=== PATIENT | male | born 1965 | race African-American/Black ===

== ENCOUNTER 2018-12-02 17:44 | Inpatient (IN) | payer OTHER ==
--- NOTE | 2018-12-02 18:35 | HP ---
COWS - Scale Resting Pulse: 0= [place] 80 or Below Sweatin= Chills/Flushing Restless Observation: 1= Difficult to Sit Still Pupil Size: 0= Normal to Room Light Bone or Joint Aches: 1= Mild Discomfort Runny Nose/ Eye Tearin= Runny Nose/Eyes GI Upset > 30mins: 2= Nausea/Diarrhea Tremor Observation: 2= Slight Tremor Visible Yawning Observation: 1= 1-2x During Session Anxiety or Irritability: 1=Feels Anxious/Irritable Goose Flesh Skin: 0=Smooth Skin COWS Score: 11 CIWA Score - Admission Criteria OASAS Guidelines: Admission for Medically Managed Detox: Requires at least one of the followin. CIWA greater than 12 2. Seizures within the past 24 hours 3. Delirium tremens within the past 24 hours 4. Hallucinations within the past 24 hours 5. Acute intervention needed for co occurring medical disorder 6. Acute intervention needed for co occurring psychiatric disorder 7. Severe withdrawal that cannot be handled at a lower level of care (continued vomiting, continued diarrhea, abnormal vital signs) requiring intravenous medication and/or fluids 8. Admission ROS [facility] Chief Complaint: 53 y/o M with PMH HTN who presents for detox from heroin. Also with marijuana use, cocaine use. Allergies/Adverse Reactions: Allergies Allergy/AdvReac Type Severity Reaction Status Date / Time No Known Allergies Allergy Verified 12/02/18 18:08 History of Present Illness: 53 y/o M with PMH HTN who presents for detox from heroin. Also with marijuana use, cocaine use. Per pt, he last used heroin today. States that he used 4.5-5 bags via inhalation today. Never IVDA. Uses daily, 6-7 bags. Longest sobriety 1 month in 2001; states that at the time his mother was sick. Being homeless caused him to relapse, as well as the stress of his father passing away. 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 Has never been in a methadone program and has never used suboxone. Also uses marijuana, 3 blunts/day. Has used this since he was 10 yrs old. Helps him "mellow out." Also used cocaine yesterday, via inhalation $40 worth. Never IVDA. Uses a few times per month. States that the cocaine makes him feel numb. Has OD on fentanyl x2. Denies alcohol use. PMH: as above PsxH: denies meds: denies allergies: NKDA FH: denies SH: [address]. used to live in a house in [place]. is in touch with his sister. used to smoke 1-2 cigs/day however states he no longer does. marijuana, cocaine, heroin use as above. denies other use. Exam Limitations: No Limitations - Ebola screening Have you traveled outside of the country in the last 21 days: No (N) Have you had contact with anyone from an Ebola affected area: No Have you been sick,other than usual withdrawal symptoms: No Do you have a fever: No - Review of Systems Constitutional: Unintentional Wgt. Loss EENT: reports: No Symptoms Reported Respiratory: reports: No Symptoms reported Cardiac: reports: No Symptoms Reported GI: reports: Diarrhea, Nausea : reports: No Symptoms Reported Musculoskeletal: reports: Joint Pain Integumentary: reports: No Symptoms Reported Neuro: reports: No Symptoms reported Endocrine: reports: No Symptoms Reported Hematology: reports: No Symptoms Reported Psychiatric: reports: No Sypmtoms Reported, Orientated x3 Patient History - Patient Medical History Hx Anemia: No Hx Asthma: No Hx Chronic Obstructive Pulmonary Disease (COPD): No Hx Cancer: No Hx Cardiac Disorders: No Hx Congestive Heart Failure: No Hx Hypertension: Yes Hx Hypercholesterolemia: No Hx Pacemaker: No HX Cerebrovascular Accident: No Hx Seizures: No Hx Dementia: No Hx Diabetes: No Hx Gastrointestinal Disorders: No Hx Liver Disease: No Hx Genitourinary Disorders: No Hx Sexually Transmitted Disorders: No Hx Renal Disease (ESRD): No Hx Thyroid Disease: No Hx Human Immunodeficiency Virus (HIV): No Hx Hepatitis C: No Hx Depression: No Hx Suicide Attempt: No Hx Bipolar Disorder: No Hx Schizophrenia: No - Patient Surgical History Past Surgical History: No Hx Neurologic Surgery: No Hx Cataract Extraction: No Hx Cardiac Surgery: No Hx Lung Surgery: No Hx Breast Surgery: No Hx Breast Biopsy: No Hx Abdominal Surgery: No Hx Appendectomy: No Hx Cholecystectomy: No Hx Genitourinary Surgery: No Hx Section: No Hx Orthopedic Surgery: No Hx Hysterectomy: No Anesthesia Reaction: No - PPD History Documented Results: Negative w/o proof PPD to be Administered?: Yes - Reproductive History Patient is a Female of Child Bearing Age (11 -55 yrs old): No - Smoking Cessation Smoking history: Former smoker Have you smoked in the past 12 months: Yes Aproximately how many cigarettes per day: 2 Hx Chewing Tobacco Use: No Initiated information on smoking cessation: Yes 'Breaking Loose' booklet given: 12/02/18 - Substance & Tx. History Hx Alcohol Use: No Substance Use Type: Cocaine, Heroin, Marijuana - Substances abused Heroin Other (specify): SNIFF Frequency: Daily Amount used: 7 bags Age of first use: 10 Date of last use: 12/02/18 Marijuana/Hashish Substance route: Smoking Frequency: Daily Amount used: 7 BAGS Age of first use: 10 Date of last use: 12/02/18 Cocaine Substance route: Inhalation Frequency: 1-2 times per week Amount used: $40 Family Disease History - Family Disease History Family History: Denies Admission Physical Exam [facility] - Vital Signs Vital Signs: Vital Signs - 24 hr 12/02/18 12/02/18 18:03 18:13 Temperature 98.7 F 98.7 F Pulse Rate 60 60 Respiratory 18 18 Rate Blood Pressure 160/100 160/100 - Physical General Appearance: Yes: Disheveled HEENTM: Yes: Within Normal Limits Respiratory: Yes: Lungs Clear Neck: Yes: Supple Breast: Yes: Breast Exam Deferred Cardiology: Yes: Regular Rhythm, Regular Rate, S1, S2 Abdominal: Yes: Tenderness (+diffusely ttp in epigastrium.) Genitourinary: Yes: Within Normal Limits Back: Yes: Normal Inspection Musculoskeletal: Yes: Within Normal Limits Extremities: Yes: Within Normal Limits Neurological: Yes: group captain II-XII NML intact Integumentary: Yes: Dry, Warm - Diagnostic (1) Opioid withdrawal Current Visit: Yes Status: Acute (2) Opioid use disorder Current Visit: Yes Status: Chronic (3) Cocaine use disorder Current Visit: Yes Status: Chronic (4) Marijuana dependence Current Visit: Yes Status: Chronic (5) Homelessness Current Visit: Yes Status: Chronic (6) Dehydration Current Visit: Yes Status: Chronic Cleared for Admission [facility] - Detox or Rehab [facility] Level of Care: Medically Managed Detox Regimen/Protocol: Methadone Breathalyzer - Breathalyzer Breathalyzer: 0 Urine Drug Screen - Test Device Lot number: [id number] Expiration date: 09/03/20 - Control Is test valid?: Yes - Results Drug screen NEGATIVE: No Urine drug screen results: THC-Marijuana, RUBINA-Cocaine, FEN-Fentanyl, MOP-Opiates , OXY-Oxycodone Inpatient Rehab Admission - Rehab Decision to Admit Inpatient rehab admission?: No
[2018-12-02] MEDS ORDERED: METHADONE HCL 10 MG TABLET (FOR DETOX USE ONLY) PO ONE (19:10)
[2018-12-02] MEDS ORDERED: cloNIDine HCL 0.1 MG TABLET PO PRN (19:10)
[2018-12-02] MEDS ORDERED: ACETAMINOPHEN 325 MG TABLET (FP) PO PRN ×2 (19:12)
[2018-12-02] MEDS ORDERED: hydrOXYzine PAMOATE 25 MG CAPSULE (FP) PO PRN (19:12)
[2018-12-02] MEDS ORDERED: MELATONIN 5 MG TABLETS PO PRN (19:12)
[2018-12-02] MEDS ORDERED: MAGNESIUM HYDROX 2400MG/30ML ORAL SUSPENSION 30 ML CUP PO PRN (19:12)
[2018-12-02] MEDS ORDERED: MENTHOL/PHENOL 1 EACH UD MM PRN (19:12)
[2018-12-02] MEDS ORDERED: BISMUTH SUBSALICYLATE 524 MG/30 ML UD PO PRN (19:12)
[2018-12-02] MEDS ORDERED: MAG HYDROX/AL HYDROX/SIMETH 30 ML UNIT-DOSE CUP PO PRN (19:12)
[2018-12-02] MEDS ORDERED: IBUPROFEN 400 MG TABLET (FP) PO PRN (19:12)
--- NOTE | 2018-12-02 19:18 | PN ---
Teaching Attending Note Name of Resident: Gloria Cardona ATTENDING PHYSICIAN STATEMENT I saw and evaluated the patient. I reviewed the resident's note and discussed the case with the resident. I agree with the resident's findings and plan as documented. SUBJECTIVE: 53 yo with a long h/o of heroin use. Pt states he is tired of using. First time in detox, says he will be soon getting a job and so would like to stop using. OBJECTIVE: Vital Signs - 24 hr 12/02/18 12/02/18 12/02/18 18:03 18:13 18:44 Temperature 98.7 F 98.7 F 98.7 F Pulse Rate 60 60 60 Respiratory 18 18 18 Rate Blood Pressure 160/100 160/100 160/100 alert and oriented neuro-non focal exam ASSESSMENT AND PLAN: OUD- Methadone based detox, pt agrees to go to methadone MAT at discharge HTN- start norvasc, clonidine prn
[2018-12-02] MEDS: THIAMINE HCL 100 MG TABLET (FP) PO SCH (21:19)
[2018-12-02] MEDS: amLODIPine BESYLATE 5 MG TABLET (FP) PO SCH (21:19)
[2018-12-03] MEDS ORDERED: METHADONE HCL 5 MG TABLET (FOR DETOX USE ONLY) ONE (08:27)
[2018-12-03] MEDS ORDERED: METHADONE HCL 10 MG TABLET (FOR DETOX USE ONLY) ONE (08:27)
[2018-12-03] MEDS: PRENATAL VITAMINS W/ FOLIC ACID TABLET (FP) PO SCH (09:50)
[2018-12-03] MEDS: amLODIPine BESYLATE 5 MG TABLET (FP) PO SCH (09:50)
[2018-12-03] MEDS ORDERED: LOPERAMIDE HCL 2 MG CAPSULE PO PRN (09:54)
[2018-12-03] MEDS ORDERED: METHADONE (DETOX) 20 MG, METHADONE (DETOX) 5 MG PO ONE (10:00)
[2018-12-03 10:38] LABS: ALBUMIN 3.2 g/dl (3.4-5.0); BILIRUBIN,TOTAL 0.6 mg/dL (0.2-1); BLOOD UREA NITROGEN 8.4 mg/dL (7-18); CALCIUM 7.9 mg/dL (8.5-10.1); CREATININE 0.8 mg/dL (0.55-1.3); POTASSIUM 3.7 mmol/L (3.5-5.1); TOT PROT 6.4 g/dl (6.4-8.2)
[2018-12-03 10:57] LABS: HEMATOCRIT 38.1 % (35.4-49); HEMOGLOBIN 12.6 GM/dL (11.7-16.9); MCH 28.9 pg (25.7-33.7); MCHC 33.1 g/dl (32.0-35.9); MEAN CELL VOLUME 87.4 fl (80-96); PLATELET COUNT 155 K/MM3 (134-434); RBC 4.36 M/mm3 (4.00-5.60); RDW 14.3 % (11.9-15.9); WHITE BLOOD COUNT 7.2 K/mm3 (4.0-10.0)
--- NOTE | 2018-12-03 14:50 | PN ---
BHS COWS - Scale Resting Pulse: 0= [place] 80 or Below Sweatin= Chills/Flushing Restless Observation: 1= Difficult to Sit Still Pupil Size: 0= Normal to Room Light Bone or Joint Aches: 2= Severe Diffuse Aches Runny Nose/ Eye Tearin= None GI Upset > 30mins: 0= None Tremor Observation of Outstretched Hands: 0= None Yawning Observation: 1= 1-2x During Session Anxiety or Irritability: 2=Irritable/Anxious Goose Flesh Skin: 3=Piloerection COWS Score: 10 BHS Progress Note (SOAP) Subjective: Body Aches, Anxious. Objective: PATIENT A & O X 3. IN NO ACUTE DISTRESS. 12/03/18 14:46 Vital Signs Temperature 98.2 F 12/03/18 13:31 Pulse Rate 56 L 12/03/18 13:31 Respiratory Rate 18 12/03/18 13:31 Blood Pressure 151/83 12/03/18 13:31 O2 Sat by Pulse Oximetry (%) Laboratory Tests 12/03/18 12/03/18 07:00 07:00 WBC 7.2 RBC 4.36 Hgb 12.6 Hct 38.1 MCV 87.4 MCH 28.9 MCHC 33.1 RDW 14.3 Plt Count 155 MPV 10.0 Sodium 140 Potassium 3.7 Chloride 105 Carbon Dioxide 28 Anion Gap 6 L BUN 8.4 Creatinine 0.8 Est GFR (CKD-EPI)AfAm 116.56 Est GFR (CKD-EPI)NonAf 100.57 Random Glucose 76 Calcium 7.9 L Total Bilirubin 0.6 AST 18 ALT 19 Alkaline Phosphatase 112 Total Protein 6.4 Albumin 3.2 L LABS NOTED. RESULTS OF ADMISSION QFT /TB TESTAND RPR PENDING. 12/03/18 14:49 Assessment: 12/03/18 14:48 WITHDRAWAL SYMPTOMS. HYPOCALKCEMIA. 12/03/18 14:48 Plan: CONTINUE DETOX. OS-JANNETH, 500 MG PO BID FOR LOW CA LEVEL NOTED ON DETOX ADMISSION LABORATORY ASSESSMENT.
[2018-12-03] MEDS: CALCIUM 500MG/VIT-D 200 UNITS COMBO TABLET (FP) PO SCH ×2 (15:03→22:10)
[2018-12-03] MEDS: THIAMINE HCL 100 MG TABLET (FP) PO SCH (22:10)
[2018-12-04] MEDS ORDERED: METHADONE HCL 10 MG TABLET (FOR DETOX USE ONLY) PO ONE (10:00)
[2018-12-04] MEDS: amLODIPine BESYLATE 5 MG TABLET (FP) PO SCH (10:02)
[2018-12-04] MEDS: PRENATAL VITAMINS W/ FOLIC ACID TABLET (FP) PO SCH (10:02)
[2018-12-04] MEDS: CALCIUM 500MG/VIT-D 200 UNITS COMBO TABLET (FP) PO SCH ×2 (10:04→23:00)
[2018-12-04] MEDS: METHOCARBAMOL 500 MG TABLET PO PRN ×2 (12:02→22:07)
--- NOTE | 2018-12-04 13:00 | PN ---
BHS COWS - Scale Resting Pulse: 0= [place] 80 or Below Sweatin= Chills/Flushing Restless Observation: 0= Sits Still Pupil Size: 1= Pupils >than Normal Bone or Joint Aches: 1= Mild Discomfort Runny Nose/ Eye Tearin= Nasal Congestion GI Upset > 30mins: 1= Stomach Cramp Tremor Observation of Outstretched Hands: 1= Tremor [place], Not Seen Yawning Observation: 1= 1-2x During Session Anxiety or Irritability: 1=Feels Anxious/Irritable Goose Flesh Skin: 0=Smooth Skin COWS Score: 8 BHS Progress Note (SOAP) Subjective: 53 years old male admitted on 12/02/18 for acute opiate withdrawal sx management body aches joins pain able to perform ADL's independently tolerate food and fluid well Objective: 12/04/18 13:01 Vital Signs Temperature 98.2 F 12/04/18 09:31 Pulse Rate 58 L 12/04/18 09:31 Respiratory Rate 18 12/04/18 09:31 Blood Pressure 139/76 12/04/18 09:31 O2 Sat by Pulse Oximetry (%) Laboratory Last Values WBC 7.2 K/mm3 (4.0-10.0) 12/03/18 07:00 RBC 4.36 M/mm3 (4.00-5.60) 12/03/18 07:00 Hgb 12.6 GM/dL (11.7-16.9) 12/03/18 07:00 Hct 38.1 % (35.4-49) 12/03/18 07:00 MCV 87.4 fl (80-96) 12/03/18 07:00 MCH 28.9 pg (25.7-33.7) 12/03/18 07:00 MCHC 33.1 g/dl (32.0-35.9) 12/03/18 07:00 RDW 14.3 % (11.9-15.9) 12/03/18 07:00 Plt Count 155 K/MM3 (134-434) 12/03/18 07:00 MPV 10.0 fl (7.5-11.1) 12/03/18 07:00 Sodium 140 mmol/L (136-145) 12/03/18 07:00 Potassium 3.7 mmol/L (3.5-5.1) 12/03/18 07:00 Chloride 105 mmol/L (98-107) 12/03/18 07:00 Carbon Dioxide 28 mmol/L (21-32) 12/03/18 07:00 Anion Gap 6 MMOL/L (8-16) L 12/03/18 07:00 BUN 8.4 mg/dL (7-18) 12/03/18 07:00 Creatinine 0.8 mg/dL (0.55-1.3) 12/03/18 07:00 Est GFR (CKD-EPI)AfAm 116.56 12/03/18 07:00 Est GFR (CKD-EPI)NonAf 100.57 12/03/18 07:00 Random Glucose 76 mg/dL (74-106) 12/03/18 07:00 Hemoglobin A1c % 5.7 % (4.2-6.3) 12/03/18 07:00 Calcium 7.9 mg/dL (8.5-10.1) L 12/03/18 07:00 Total Bilirubin 0.6 mg/dL (0.2-1) 12/03/18 07:00 AST 18 U/L (15-37) 12/03/18 07:00 ALT 19 U/L (13-61) 12/03/18 07:00 Alkaline Phosphatase 112 U/L (45-117) 12/03/18 07:00 Total Protein 6.4 g/dl (6.4-8.2) 12/03/18 07:00 Albumin 3.2 g/dl (3.4-5.0) L 12/03/18 07:00 RPR Titer Nonreactive (NONREACTIVE) 12/03/18 07:00 lab noted low Ca++ 12/04/18 13:03continue oscal Assessment: 12/04/18 13:03 opiate withdrawal sx Plan: continue opiate detox
[2018-12-04] MEDS ORDERED: CALCIUM 250MG/VIT-D 125 UNITS 1 COMBO TABLET PO SCH (13:15)
[2018-12-04] MEDS: THIAMINE HCL 100 MG TABLET (FP) PO SCH (22:07)
[2018-12-05] MEDS ORDERED: METHADONE HCL 5 MG TABLET (FOR DETOX USE ONLY) ONE (08:37)
[2018-12-05] MEDS ORDERED: METHADONE HCL 10 MG TABLET (FOR DETOX USE ONLY) ONE (08:37)
[2018-12-05] MEDS ORDERED: METHADONE (DETOX) 10 MG, METHADONE (DETOX) 5 MG PO ONE (10:00)
[2018-12-05] MEDS: amLODIPine BESYLATE 5 MG TABLET (FP) PO SCH (10:29)
[2018-12-05] MEDS: PRENATAL VITAMINS W/ FOLIC ACID TABLET (FP) PO SCH (10:29)
[2018-12-05] MEDS: CALCIUM 500MG/VIT-D 200 UNITS COMBO TABLET (FP) PO SCH ×2 (10:29→22:10)
[2018-12-05] MEDS: METHOCARBAMOL 500 MG TABLET PO PRN (10:30)
[2018-12-05] MEDS: NICOTINE POLACRILEX 2 MG GUM BUC PRN (10:32)
--- NOTE | 2018-12-05 13:05 | PN ---
BHS COWS - Scale Resting Pulse: 0= [place] 80 or Below Sweatin= Chills/Flushing Restless Observation: 0= Sits Still Pupil Size: 0= Normal to Room Light Bone or Joint Aches: 1= Mild Discomfort Runny Nose/ Eye Tearin= Nasal Congestion GI Upset > 30mins: 1= Stomach Cramp Tremor Observation of Outstretched Hands: 1= Tremor [place], Not Seen Yawning Observation: 0= None Anxiety or Irritability: 0= None Goose Flesh Skin: 0=Smooth Skin COWS Score: 5 BHS Progress Note (SOAP) Subjective: patient is doing well with methadone detox regimen less body ache sleep better at night discuss medication assisted treatment program Objective: 12/05/18 13:03 Vital Signs Temperature 98.2 F 12/05/18 09:43 Pulse Rate 67 12/05/18 09:43 Respiratory Rate 20 12/05/18 09:43 Blood Pressure 127/65 12/05/18 09:43 O2 Sat by Pulse Oximetry (%) Laboratory Last Values WBC 7.2 K/mm3 (4.0-10.0) 12/03/18 07:00 RBC 4.36 M/mm3 (4.00-5.60) 12/03/18 07:00 Hgb 12.6 GM/dL (11.7-16.9) 12/03/18 07:00 Hct 38.1 % (35.4-49) 12/03/18 07:00 MCV 87.4 fl (80-96) 12/03/18 07:00 MCH 28.9 pg (25.7-33.7) 12/03/18 07:00 MCHC 33.1 g/dl (32.0-35.9) 12/03/18 07:00 RDW 14.3 % (11.9-15.9) 12/03/18 07:00 Plt Count 155 K/MM3 (134-434) 12/03/18 07:00 MPV 10.0 fl (7.5-11.1) 12/03/18 07:00 Sodium 140 mmol/L (136-145) 12/03/18 07:00 Potassium 3.7 mmol/L (3.5-5.1) 12/03/18 07:00 Chloride 105 mmol/L (98-107) 12/03/18 07:00 Carbon Dioxide 28 mmol/L (21-32) 12/03/18 07:00 Anion Gap 6 MMOL/L (8-16) L 12/03/18 07:00 BUN 8.4 mg/dL (7-18) 12/03/18 07:00 Creatinine 0.8 mg/dL (0.55-1.3) 12/03/18 07:00 Est GFR (CKD-EPI)AfAm 116.56 12/03/18 07:00 Est GFR (CKD-EPI)NonAf 100.57 12/03/18 07:00 Random Glucose 76 mg/dL (74-106) 12/03/18 07:00 Hemoglobin A1c % 5.7 % (4.2-6.3) 12/03/18 07:00 Calcium 7.9 mg/dL (8.5-10.1) L 12/03/18 07:00 Total Bilirubin 0.6 mg/dL (0.2-1) 12/03/18 07:00 AST 18 U/L (15-37) 12/03/18 07:00 ALT 19 U/L (13-61) 12/03/18 07:00 Alkaline Phosphatase 112 U/L (45-117) 12/03/18 07:00 Total Protein 6.4 g/dl (6.4-8.2) 12/03/18 07:00 Albumin 3.2 g/dl (3.4-5.0) L 12/03/18 07:00 RPR Titer Nonreactive (NONREACTIVE) 12/03/18 07:00 continue Ca++ supplement lab noted 12/05/18 13:04 Assessment: 12/05/18 13:04 opiate withdrawal sx Plan: continue opiate detox
[2018-12-05] MEDS: THIAMINE HCL 100 MG TABLET (FP) PO SCH (22:09)
[2018-12-06 09:24] VITALS: BP 144/81; PULSE 63; TEMP 97.2
[2018-12-06] MEDS: CALCIUM 500MG/VIT-D 200 UNITS COMBO TABLET (FP) PO SCH (09:58)
[2018-12-06] MEDS: METHOCARBAMOL 500 MG TABLET PO PRN (09:58)
[2018-12-06] MEDS: PRENATAL VITAMINS W/ FOLIC ACID TABLET (FP) PO SCH (09:58)
[2018-12-06] MEDS: amLODIPine BESYLATE 5 MG TABLET (FP) PO SCH (09:58)
[2018-12-06] MEDS: NICOTINE POLACRILEX 2 MG GUM BUC PRN (10:00)
[2018-12-06] MEDS ORDERED: METHADONE HCL 10 MG TABLET (FOR DETOX USE ONLY) PO ONE (10:00)
--- NOTE | 2018-12-06 13:34 | PN ---
BHS COWS - Scale Resting Pulse: 0= [place] 80 or Below Sweatin= No chills or Flushing Restless Observation: 1= Difficult to Sit Still Pupil Size: 0= Normal to Room Light Bone or Joint Aches: 0= None Runny Nose/ Eye Tearin= None GI Upset > 30mins: 0= None Tremor Observation of Outstretched Hands: 0= None Yawning Observation: 1= 1-2x During Session Anxiety or Irritability: 2=Irritable/Anxious Goose Flesh Skin: 0=Smooth Skin COWS Score: 4 BHS Progress Note (SOAP) Subjective: Anxious (Mild). Objective: PATIENT A & O X 3, OBSERVED AMBULATING ON UNIT UNASSISTED. IN NO ACUTE DISTRESS. 12/06/18 13:31 Vital Signs Temperature 97.2 F L 12/06/18 09:24 Pulse Rate 63 12/06/18 09:24 Respiratory Rate 18 12/06/18 09:24 Blood Pressure 144/81 12/06/18 09:24 O2 Sat by Pulse Oximetry (%) Laboratory Tests 12/03/18 12/03/18 12/03/18 07:00 07:00 07:00 WBC 7.2 RBC 4.36 Hgb 12.6 Hct 38.1 MCV 87.4 MCH 28.9 MCHC 33.1 RDW 14.3 Plt Count 155 MPV 10.0 Sodium 140 Potassium 3.7 Chloride 105 Carbon Dioxide 28 Anion Gap 6 L BUN 8.4 Creatinine 0.8 Est GFR (CKD-EPI)AfAm 116.56 Est GFR (CKD-EPI)NonAf 100.57 Random Glucose 76 Hemoglobin A1c % Calcium 7.9 L Total Bilirubin 0.6 AST 18 ALT 19 Alkaline Phosphatase 112 Total Protein 6.4 Albumin 3.2 L RPR Titer Nonreactive TB (QFT) Incubation TB Test (QFT) Nil TB Test (QFT) Mitogen TB Test (QFT) Antigen TB Test (QFT) TB Positive Criteria 12/03/18 12/03/18 07:00 07:00 WBC RBC Hgb Hct MCV MCH MCHC RDW Plt Count MPV Sodium Potassium Chloride Carbon Dioxide Anion Gap BUN Creatinine Est GFR (CKD-EPI)AfAm Est GFR (CKD-EPI)NonAf Random Glucose Hemoglobin A1c % 5.7 Calcium Total Bilirubin AST ALT Alkaline Phosphatase Total Protein Albumin RPR Titer TB (QFT) Incubation TB Test (QFT) Nil 0.21 TB Test (QFT) Mitogen 7.13 TB Test (QFT) Antigen 0.25 TB Test (QFT) Negative TB Positive Criteria LABS NOTED. 12/06/18 13:32 Assessment: 12/06/18 13:32 COMPLETION OF DETOX REGIMEN. 12/06/18 13:32 Plan: SINCE PATIENT REPORTS THAT CURRENT WITHDRAWAL / DETOX SYMPTOMS ARE MINIMAL IN DEGREE AND THAT HE FEELS WELL OVERALL, AT PATIENTS REQUEST, HE WAS GRANTED AN EARLY DISCHARGE FROM DETOX UNIT TODAY SO THAT HE MAY PROCEED ON TO AFTERCARE PLAN - [facility] ([place], [place]).
--- NOTE | 2018-12-06 13:39 | DS ---
[facility] Detox Discharge Summary Admission Date: 12/02/18 Discharge Date: 12/06/18 - History Present History: Cannabis Dependence, Cocaine Dependence, Opioid Dependence Additional Comments: PATIENT REPORTS THAT CURRENT WITHDRAWAL / DETOX SYMPTOMS ARE MINIMAL IN DEGREE AND THAT HE FEELS WELL OVERALL AT TIME OF DISCHARGE FROM DETOX UNIT. PATIENT GOING TO [facility] ([place]) FOR AFTERCARE. PATIENT WAS DISCHARGED FROM DETOX UNIT TO BE TAKEN OVER TO REHAB UNIT IN STABLE MEDICAL CONDITION. Pertinent Past History: Dehydration, HTN, Nicotine Dependence, Hypocalcemia. - Physical Exam Results Vital Signs: Vital Signs Temperature 97.2 F L 12/06/18 09:24 Pulse Rate 63 12/06/18 09:24 Respiratory Rate 18 12/06/18 09:24 Blood Pressure 144/81 12/06/18 09:24 O2 Sat by Pulse Oximetry (%) Pertinent Admission Physical Exam Findings: WITHDRAWAL SYMPTOMS. Laboratory Tests 12/03/18 12/03/18 12/03/18 07:00 07:00 07:00 WBC 7.2 RBC 4.36 Hgb 12.6 Hct 38.1 MCV 87.4 MCH 28.9 MCHC 33.1 RDW 14.3 Plt Count 155 MPV 10.0 Sodium 140 Potassium 3.7 Chloride 105 Carbon Dioxide 28 Anion Gap 6 L BUN 8.4 Creatinine 0.8 Est GFR (CKD-EPI)AfAm 116.56 Est GFR (CKD-EPI)NonAf 100.57 Random Glucose 76 Hemoglobin A1c % Calcium 7.9 L Total Bilirubin 0.6 AST 18 ALT 19 Alkaline Phosphatase 112 Total Protein 6.4 Albumin 3.2 L RPR Titer Nonreactive TB (QFT) Incubation TB Test (QFT) Nil TB Test (QFT) Mitogen TB Test (QFT) Antigen TB Test (QFT) TB Positive Criteria 12/03/18 12/03/18 07:00 07:00 WBC RBC Hgb Hct MCV MCH MCHC RDW Plt Count MPV Sodium Potassium Chloride Carbon Dioxide Anion Gap BUN Creatinine Est GFR (CKD-EPI)AfAm Est GFR (CKD-EPI)NonAf Random Glucose Hemoglobin A1c % 5.7 Calcium Total Bilirubin AST ALT Alkaline Phosphatase Total Protein Albumin RPR Titer TB (QFT) Incubation TB Test (QFT) Nil 0.21 TB Test (QFT) Mitogen 7.13 TB Test (QFT) Antigen 0.25 TB Test (QFT) Negative TB Positive Criteria LABS NOTED. - Treatment Hospital Course: Detox Protocol Followed, Detoxed Safely, Responded well, Discharged Condition Good, Rehab Referral Accepted Patient has Accepted a Rehab Referral to: [facility] ([place], [place]). - Medication Discharge Medications: Ambulatory Orders NK [No Known Home Medication] 12/02/18 - Diagnosis (1) Hypocalcemia Current Visit: Yes Status: Acute (2) Opioid withdrawal Current Visit: Yes Status: Acute (3) Cocaine use disorder Current Visit: Yes Status: Chronic (4) Dehydration Current Visit: Yes Status: Chronic (5) Homelessness Current Visit: Yes Status: Chronic (6) Marijuana dependence Current Visit: Yes Status: Chronic (7) Opioid use disorder Current Visit: Yes Status: Chronic - AMA Did Patient Leave Against Medical Advice: No
[2018-12-07] MEDS ORDERED: METHADONE HCL 5 MG TABLET (FOR DETOX USE ONLY) PO ONE (06:00)
== END 2018-12-06 13:25 | disposition other institution (70) | DRG 773 ==
LOC: YASAS 17:44 → Y3N 19:15
PROVIDERS: ADMIT Surgery; ATTEND Surgery
PROC: HZ2ZZZZ Detoxification Services for Substance Abuse Treatment (ICD-10-PCS; principal; 2018-12-02)
DX: F11.23 Opioid dependence with withdrawal (principal); F14.20 Cocaine dependence, uncomplicated; F12.20 Cannabis dependence, uncomplicated; F17.210 Nicotine dependence, cigarettes, uncomplicated; E83.51 Hypocalcemia; I10 Essential (primary) hypertension; E86.0 Dehydration; Z59.0 Homelessness
CPT/HCPCS: 36415; 80053; 83036; 85027; 86480; 86593

== ENCOUNTER 2018-12-06 13:10 | Inpatient (IN) | payer OTHER ==
[2018-12-06] MEDS ORDERED: P-EPHED 60MG/TRIPROLIDI 2.5MG TABLET PO PRN (13:40)
[2018-12-06] MEDS ORDERED: guaiFENesin 200 MG/10 ML 10 ML UNIT-DOSE CUPS PO PRN (13:40)
[2018-12-06] MEDS ORDERED: MENTHOL/PHENOL 1 EACH UD MM PRN (13:40)
[2018-12-06] MEDS ORDERED: MAGNESIUM HYDROX 2400MG/30ML ORAL SUSPENSION 30 ML CUP PO PRN (13:40)
[2018-12-06] MEDS ORDERED: NICOTINE POLACRILEX 2 MG GUM BUC PRN (13:40)
[2018-12-06] MEDS ORDERED: MAG HYDROX/AL HYDROX/SIMETH 30 ML UNIT-DOSE CUP PO PRN (13:40)
[2018-12-06] MEDS ORDERED: MAGNESIUM CITRATE 300 ML BOTTLE PO PRN (13:40)
[2018-12-06] MEDS ORDERED: LOPERAMIDE HCL 2 MG CAPSULE PO PRN (13:40)
--- NOTE | 2018-12-06 13:49 | HP ---
DIONTE ECKERT Rehab Assess/Revision - Admission History Admitted to Rehab from: [facility] Date of Admission to Rehab: 12/06/2018 - Vital signs Vital Signs: NOTED; STABLE. - Findings Detox History & Physical reviewed: Yes Concur with findings: Yes Comments/Additional Findings: PATIENT'S MEDICAL / MEDICATION HISTORY REVIEWED PRIOR TO DISCHARGE FROM DETOX UNIT. CALCIUM SUPPLEMENT CONTINUED FOR FIRST SEVERAL DAYS OF REHAB DUE TO LOW CALCIUM LEVEL NOTED ON DETOX ADMISSION LABORATORY ASSSESSMENT. CALCIUM LEVEL TO BE RE-CHECKED ON 12/13/2018. PATIENT WAS DISCHARGED FROM DETOX UNIT TO BE TAKEN OVER TO REHAB UNIT IN STABLE MEDICAL CONDITION. Inpatient Rehab Admission - Rehab Decision to Admit Inpatient rehab admission?: Yes - Initial Determination Are CD services needed?: Yes Free of communicable disease: Yes Not in need of hospitalization: Yes - Rehab Admission Criteria Previous failed treatment: No Poor recovery environment: Yes Comorbidities: Yes Lacks judgement: No Patient is meeting Inpatient Rehab admission criteria:: Yes
[2018-12-06] MEDS: CYCLOBENZAPRINE HCL 5 MG TABLET PO PRN ×2 (15:11→21:14)
[2018-12-06] MEDS: hydrOXYzine PAMOATE 50 MG CAPSULE (FP) PO PRN ×2 (15:11→21:14)
[2018-12-06] MEDS: CALCIUM 500MG/VIT-D 200 UNITS COMBO TABLET (FP) PO SCH (21:15)
[2018-12-06] MEDS: THIAMINE HCL 100 MG TABLET (FP) PO SCH (21:15)
[2018-12-06] MEDS ORDERED: MELATONIN 5 MG TABLETS PO PRN (22:00)
[2018-12-07] MEDS: amLODIPine BESYLATE 5 MG TABLET (FP) PO SCH (09:17)
[2018-12-07] MEDS: PRENATAL VITAMINS W/ FOLIC ACID TABLET (FP) PO SCH (09:17)
[2018-12-07] MEDS: CALCIUM 500MG/VIT-D 200 UNITS COMBO TABLET (FP) PO SCH ×2 (09:18→21:02)
[2018-12-07] MEDS: CYCLOBENZAPRINE HCL 5 MG TABLET PO PRN ×2 (09:22→18:10)
[2018-12-07] MEDS: THIAMINE HCL 100 MG TABLET (FP) PO SCH (21:02)
[2018-12-08] MEDS: PRENATAL VITAMINS W/ FOLIC ACID TABLET (FP) PO SCH (09:38)
[2018-12-08] MEDS: amLODIPine BESYLATE 5 MG TABLET (FP) PO SCH (09:38)
[2018-12-08] MEDS: CALCIUM 500MG/VIT-D 200 UNITS COMBO TABLET (FP) PO SCH ×2 (09:38→21:09)
[2018-12-08] MEDS: ACETAMINOPHEN 325 MG TABLET (FP) PO PRN ×2 (09:38→21:11)
[2018-12-08] MEDS: CYCLOBENZAPRINE HCL 5 MG TABLET PO PRN ×2 (09:38→21:09)
[2018-12-08] MEDS: THIAMINE HCL 100 MG TABLET (FP) PO SCH (21:09)
[2018-12-09] MEDS: CALCIUM 500MG/VIT-D 200 UNITS COMBO TABLET (FP) PO SCH ×2 (09:49→21:48)
[2018-12-09] MEDS: CYCLOBENZAPRINE HCL 5 MG TABLET PO PRN (09:49)
[2018-12-09] MEDS: amLODIPine BESYLATE 5 MG TABLET (FP) PO SCH (09:49)
[2018-12-09] MEDS: PRENATAL VITAMINS W/ FOLIC ACID TABLET (FP) PO SCH (09:49)
[2018-12-09] MEDS: LIDOCAINE 5% TOPICAL PATCH TP SCH (11:35)
--- NOTE | 2018-12-09 12:17 | PN ---
S Progress Note Note: PATIENT SEEN FOR C/O BODY ACHES AND LOW BACK PAIN WITH NO RELIEF FROM FLEXERIL. PATIENT CURRENTLY ADMITTED TO REHAB FOR OPIOD DEPENDENCE. Vital Signs Temperature 97.7 F 12/09/18 07:17 Pulse Rate 70 12/09/18 07:17 Respiratory Rate 18 12/09/18 07:17 Blood Pressure 124/54 L 12/09/18 07:17 O2 Sat by Pulse Oximetry (%) PE: ALERT AND ORIENTED X 3 SKIN WARM AND DRY +PERRLA, EOMS INTACT BL MS + LS SPINE TACTILE TENDERNESS FULL ROM, AMB AD CLAUDETTE NO VISIBLE TREMORS A/P: MUSCLE SPASM/PAIN WILL D/C FLEXERIL START LIDOCAINE PATCH TO LOWER BACK DAILY, REMOVE HS ADD BACLOFEN 10MG TID CONTINUE APAP/IBU PRN MONITOR CLINICALLY
[2018-12-09] MEDS: BACLOFEN 10 MG TABLET (FP) PO SCH ×2 (14:19→21:45)
[2018-12-09] MEDS: THIAMINE HCL 100 MG TABLET (FP) PO SCH (21:45)
[2018-12-09] MEDS: hydrOXYzine PAMOATE 50 MG CAPSULE (FP) PO PRN (21:47)
[2018-12-09] MEDS: LIDOCAINE PATCH REMOVAL MC SCH (22:10)
[2018-12-10] MEDS: BACLOFEN 10 MG TABLET (FP) PO SCH ×3 (06:16→21:25)
[2018-12-10] MEDS: CALCIUM 500MG/VIT-D 200 UNITS COMBO TABLET (FP) PO SCH ×2 (09:43→21:25)
[2018-12-10] MEDS: PRENATAL VITAMINS W/ FOLIC ACID TABLET (FP) PO SCH (09:43)
[2018-12-10] MEDS: LIDOCAINE 5% TOPICAL PATCH TP SCH (09:43)
[2018-12-10] MEDS: amLODIPine BESYLATE 5 MG TABLET (FP) PO SCH (09:43)
[2018-12-10] MEDS: ACETAMINOPHEN 325 MG TABLET (FP) PO PRN (10:56)
[2018-12-10] MEDS: THIAMINE HCL 100 MG TABLET (FP) PO SCH (21:25)
[2018-12-10] MEDS ORDERED: PT OWN MED DRAWER 7, Y5N ONE (21:28)
[2018-12-10] MEDS: LIDOCAINE PATCH REMOVAL MC SCH (21:57)
[2018-12-11] MEDS: BACLOFEN 10 MG TABLET (FP) PO SCH ×3 (06:04→21:16)
[2018-12-11] MEDS: LIDOCAINE 5% TOPICAL PATCH TP SCH (09:43)
[2018-12-11] MEDS: CALCIUM 500MG/VIT-D 200 UNITS COMBO TABLET (FP) PO SCH ×2 (09:43→21:16)
[2018-12-11] MEDS: amLODIPine BESYLATE 5 MG TABLET (FP) PO SCH (09:43)
[2018-12-11] MEDS: PRENATAL VITAMINS W/ FOLIC ACID TABLET (FP) PO SCH (09:43)
[2018-12-11] MEDS: ACETAMINOPHEN 325 MG TABLET (FP) PO PRN ×2 (11:55→21:22)
[2018-12-11] MEDS: LIDOCAINE PATCH REMOVAL MC SCH (22:10)
[2018-12-11] MEDS: THIAMINE HCL 100 MG TABLET (FP) PO SCH (22:10)
[2018-12-12] MEDS: BACLOFEN 10 MG TABLET (FP) PO SCH ×3 (05:44→21:53)
[2018-12-12] MEDS: CALCIUM 500MG/VIT-D 200 UNITS COMBO TABLET (FP) PO SCH ×2 (09:45→22:03)
[2018-12-12] MEDS: LIDOCAINE 5% TOPICAL PATCH TP SCH (09:45)
[2018-12-12] MEDS: amLODIPine BESYLATE 5 MG TABLET (FP) PO SCH (09:46)
[2018-12-12] MEDS: PRENATAL VITAMINS W/ FOLIC ACID TABLET (FP) PO SCH (09:46)
[2018-12-12] MEDS: ACETAMINOPHEN 325 MG TABLET (FP) PO PRN ×2 (09:46→21:53)
[2018-12-12] MEDS: THIAMINE HCL 100 MG TABLET (FP) PO SCH (21:54)
[2018-12-12] MEDS: LIDOCAINE PATCH REMOVAL MC SCH (21:54)
[2018-12-13] MEDS: ACETAMINOPHEN 325 MG TABLET (FP) PO PRN ×3 (06:24→21:49)
[2018-12-13] MEDS: BACLOFEN 10 MG TABLET (FP) PO SCH ×3 (06:24→21:49)
[2018-12-13] MEDS: LIDOCAINE 5% TOPICAL PATCH TP SCH (10:01)
[2018-12-13] MEDS: amLODIPine BESYLATE 5 MG TABLET (FP) PO SCH (10:01)
[2018-12-13] MEDS: CALCIUM 500MG/VIT-D 200 UNITS COMBO TABLET (FP) PO SCH (10:01)
[2018-12-13] MEDS: PRENATAL VITAMINS W/ FOLIC ACID TABLET (FP) PO SCH (10:01)
[2018-12-13] MEDS ORDERED: BUPRENORPHINE/NALOXONE 2 MG/0.5 MG FILM PACKET SL ONE (10:23)
[2018-12-13] MEDS ORDERED: PT OWN MED DRAWER 7, Y5N ONE (11:09)
--- NOTE | 2018-12-13 11:12 | PN ---
BHS COWS - Scale Resting Pulse: 1= [place] 81-100 Sweatin= Chills/Flushing Restless Observation: 1= Difficult to Sit Still Pupil Size: 0= Normal to Room Light Bone or Joint Aches: 2= Severe Diffuse Aches Runny Nose/ Eye Tearin= None GI Upset > 30mins: 3= Vomiting/Diarrhea Tremor Observation of Outstretched Hands: 0= None Yawning Observation: 0= None Anxiety or Irritability: 4=Extreme Anxiety Goose Flesh Skin: 0=Smooth Skin COWS Score: 12 BHS Progress Note (SOAP) Subjective: PATIENT SEEN FOR C/O WITHDRAWAL SYMPTOMS FROM OPIOD DEPENDENCE. PATIENT ANXIOUS , RESTLESS AND IRRITABLE. PATIENT APPROACHED PROVIDER IN HALLWAY AND STATED " I AM AT THE POINT THAT I WANT TO LEAVE AND USE". PATIENT STATES HE HAS HAD DIARRHEA SINCE LAST NIGHT AND VOMITED X ONE YESTERDAY EVENING. Objective: 12/13/18 11:08 Ambulatory Orders NK [No Known Home Medication] 12/02/18 Vital Signs (72 hours) 12/11/18 12/11/18 12/12/18 07:14 09:30 00:30 Temperature 97.6 F Pulse Rate 81 98 H Respiratory 18 18 18 Rate Blood Pressure 122/81 125/71 12/12/18 12/12/18 12/12/18 03:30 06:30 07:12 Temperature 97.4 F L Pulse Rate 83 Respiratory 18 18 18 Rate Blood Pressure 139/71 12/12/18 12/13/18 12/13/18 09:20 00:30 03:30 Temperature Pulse Rate 94 H Respiratory 18 18 Rate Blood Pressure 112/72 12/13/18 07:25 Temperature 97.6 F Pulse Rate 83 Respiratory 18 Rate Blood Pressure 134/85 PE: ALERT AND ORIENTED X 3 SKIN WARM, + FACIAL MOISTURE +PERRLA, EOMS INTACT BL NECK SUPPLE NO JVD GI SOFT, NT,ND EXT NO TREMORS, AMB AD CLAUDETTE ANXIOUS/RESTLESS/IRRITABLE Assessment: 12/13/18 11:10 OPIOD USE DISORDER SUBOXONE MAT Plan: PATIENT STATES HE TRIED SUBOXONE IN PAST AT [facility] AND WAS ON 8MG DAILY. ISTOP CONFIRMED PATIENT WAS TREATED WITH SUBOXONE 8MG SL TID IN JUN 2018. PRESCRIBER ADRIANNA SNELL MD. PATIENT WOULD LIKE TO BE LINKED BACK TO PROGRAM TO CONTINUE TREATMENT. COUNSELOR CRISTA CONNOR INFORMED AND TO LINK PATIENT TO PROGRAM. WILL START SUBOXONE 2MG SL NOW AND ANOTHER DOSE AT 2PM CONTINUE SUBOXONE 4MG BID IN AM CONTINUE SUPPORTIVE MEASURES AND ENCOURAGE ORAL FLUIDS
[2018-12-13] MEDS ORDERED: BUPRENORPHINE/NALOXONE 2 MG/0.5 MG FILM PACKET SL SCH (14:00)
[2018-12-13] MEDS: THIAMINE HCL 100 MG TABLET (FP) PO SCH (21:49)
[2018-12-13] MEDS: LIDOCAINE PATCH REMOVAL MC SCH (22:12)
[2018-12-14] MEDS: BACLOFEN 10 MG TABLET (FP) PO SCH ×3 (06:07→21:14)
[2018-12-14] MEDS: ACETAMINOPHEN 325 MG TABLET (FP) PO PRN ×2 (09:39→21:14)
[2018-12-14] MEDS: LIDOCAINE 5% TOPICAL PATCH TP SCH (09:40)
[2018-12-14] MEDS: amLODIPine BESYLATE 5 MG TABLET (FP) PO SCH (09:40)
[2018-12-14] MEDS: BUPRENORPHINE/NALOXONE 4 MG/1 MG FILM PACKET SL SCH ×2 (09:40→21:14)
[2018-12-14] MEDS: PRENATAL VITAMINS W/ FOLIC ACID TABLET (FP) PO SCH (09:41)
[2018-12-14] MEDS ORDERED: BUPRENORPHINE/NALOXONE 4 MG/1 MG FILM PACKET SL SCH ×2 (10:00→11:10)
[2018-12-14] MEDS: LIDOCAINE PATCH REMOVAL MC SCH (21:14)
[2018-12-14] MEDS: THIAMINE HCL 100 MG TABLET (FP) PO SCH (21:14)
[2018-12-15] MEDS: BACLOFEN 10 MG TABLET (FP) PO SCH ×3 (06:37→21:39)
[2018-12-15] MEDS: amLODIPine BESYLATE 5 MG TABLET (FP) PO SCH (09:32)
[2018-12-15] MEDS: PRENATAL VITAMINS W/ FOLIC ACID TABLET (FP) PO SCH (09:32)
[2018-12-15] MEDS: BUPRENORPHINE/NALOXONE 4 MG/1 MG FILM PACKET SL SCH ×2 (09:33→21:39)
[2018-12-15] MEDS: ACETAMINOPHEN 325 MG TABLET (FP) PO PRN (09:33)
[2018-12-15] MEDS: LIDOCAINE 5% TOPICAL PATCH TP SCH (09:34)
[2018-12-15] MEDS: THIAMINE HCL 100 MG TABLET (FP) PO SCH (21:39)
[2018-12-15] MEDS: LIDOCAINE PATCH REMOVAL MC SCH (21:39)
[2018-12-16] MEDS: BACLOFEN 10 MG TABLET (FP) PO SCH ×3 (06:10→21:09)
[2018-12-16] MEDS: LIDOCAINE 5% TOPICAL PATCH TP SCH (09:59)
[2018-12-16] MEDS: amLODIPine BESYLATE 5 MG TABLET (FP) PO SCH (09:59)
[2018-12-16] MEDS: PRENATAL VITAMINS W/ FOLIC ACID TABLET (FP) PO SCH (09:59)
[2018-12-16] MEDS: BUPRENORPHINE/NALOXONE 4 MG/1 MG FILM PACKET SL SCH ×2 (10:01→21:08)
[2018-12-16] MEDS: ACETAMINOPHEN 325 MG TABLET (FP) PO PRN ×2 (10:02→21:08)
[2018-12-16] MEDS: THIAMINE HCL 100 MG TABLET (FP) PO SCH (21:08)
[2018-12-16] MEDS: LIDOCAINE PATCH REMOVAL MC SCH (21:10)
[2018-12-17] MEDS: BACLOFEN 10 MG TABLET (FP) PO SCH ×3 (06:14→21:51)
[2018-12-17] MEDS: ACETAMINOPHEN 325 MG TABLET (FP) PO PRN ×3 (06:15→21:51)
[2018-12-17] MEDS: LIDOCAINE 5% TOPICAL PATCH TP SCH (09:33)
[2018-12-17] MEDS: BUPRENORPHINE/NALOXONE 4 MG/1 MG FILM PACKET SL SCH ×2 (09:33→21:51)
[2018-12-17] MEDS: PRENATAL VITAMINS W/ FOLIC ACID TABLET (FP) PO SCH (09:33)
[2018-12-17] MEDS ORDERED: PT OWN MED DRAWER 7, Y5N ONE (09:35)
[2018-12-17] MEDS: amLODIPine BESYLATE 5 MG TABLET (FP) PO SCH (10:06)
[2018-12-17] MEDS: LIDOCAINE PATCH REMOVAL MC SCH (21:51)
[2018-12-17] MEDS: THIAMINE HCL 100 MG TABLET (FP) PO SCH (21:51)
[2018-12-18] MEDS: BACLOFEN 10 MG TABLET (FP) PO SCH ×3 (06:15→21:28)
[2018-12-18] MEDS: BUPRENORPHINE/NALOXONE 4 MG/1 MG FILM PACKET SL SCH ×2 (09:43→21:28)
[2018-12-18] MEDS: PRENATAL VITAMINS W/ FOLIC ACID TABLET (FP) PO SCH (09:43)
[2018-12-18] MEDS: amLODIPine BESYLATE 5 MG TABLET (FP) PO SCH (09:43)
[2018-12-18] MEDS: ACETAMINOPHEN 325 MG TABLET (FP) PO PRN ×3 (09:43→21:29)
[2018-12-18] MEDS: LIDOCAINE 5% TOPICAL PATCH TP SCH (09:43)
--- NOTE | 2018-12-18 10:17 | PN ---
BHS Progress Note Note: Pt requesting HIV test- did not want to disclose risk factors.
[2018-12-18] MEDS: THIAMINE HCL 100 MG TABLET (FP) PO SCH (21:28)
[2018-12-18] MEDS: LIDOCAINE PATCH REMOVAL MC SCH (21:28)
[2018-12-19] MEDS: BACLOFEN 10 MG TABLET (FP) PO SCH ×3 (06:44→21:19)
[2018-12-19] MEDS: LIDOCAINE 5% TOPICAL PATCH TP SCH (09:25)
[2018-12-19] MEDS: PRENATAL VITAMINS W/ FOLIC ACID TABLET (FP) PO SCH (09:25)
[2018-12-19] MEDS: BUPRENORPHINE/NALOXONE 4 MG/1 MG FILM PACKET SL SCH ×2 (09:25→21:18)
[2018-12-19] MEDS: amLODIPine BESYLATE 5 MG TABLET (FP) PO SCH (09:25)
[2018-12-19] MEDS: ACETAMINOPHEN 325 MG TABLET (FP) PO PRN ×2 (09:25→21:18)
--- NOTE | 2018-12-19 10:42 | PN ---
[facility] Progress Note (SOAP) Subjective: Pt is a 53 y/o male admitted to rehab, completed treatment and scheduled for discharge tomorrow. Pt met with counselor and has been referred to [facility] on [address], [place] for CD aftercare. 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 Pt reports he goes to [facility] for medical management. Pt denies S/H/I. Objective: 12/19/18 10:41 Vital Signs - 24 hr 12/19/18 12/19/18 12/19/18 00:30 03:30 07:10 Temperature 98.4 F Pulse Rate 80 Respiratory 18 18 18 Rate Blood Pressure 116/73 Laboratory Tests 12/18/18 10:30 HIV 1&2 Antibody Screen Cancelled HIV P24 Antigen Cancelled Home Medications Medication Instructions Recorded Amlodipine Besylate [Norvasc -] 5 mg PO DAILY #14 tablet 12/19/18 Buprenorphine HCl/Naloxone HCl 1 each SL BID #14 film MDD 2 12/19/18 [Suboxone 4 mg-1 mg Sl Film] General:Alert o x 3. loquacious. Cardiac:s1 s2, rrr Lungs:cta, kelli. Abdomen:soft,nt,nd,+bs EXtremities/Skin:wnl Assessment: 12/19/18 10:41 medically stable [facility] Inpatient Services Medical - Diagnosis (1) Hypertension Qualifiers: Hypertension type: essential hypertension Qualified Code(s): I10 - Essential (primary) hypertension Current Visit: Yes Status: Chronic (2) Cocaine use disorder Current Visit: No Status: Chronic (3) Homelessness Current Visit: No Status: Chronic (4) Marijuana dependence Current Visit: No Status: Chronic (5) Opioid use disorder Current Visit: No Status: Chronic Initialized on 12/19/18 10:42 - END OF NOTE Plan: D/c pt tomorrow follow up with CD aftercare/Suboxone MAT at [facility] Follow up with primary care with [facility] OPD clinic with 1-2 weeks after discharge.
[2018-12-19] MEDS: THIAMINE HCL 100 MG TABLET (FP) PO SCH (21:19)
[2018-12-19] MEDS: LIDOCAINE PATCH REMOVAL MC SCH (21:28)
[2018-12-20] MEDS: ACETAMINOPHEN 325 MG TABLET (FP) PO PRN (06:06)
[2018-12-20] MEDS: BACLOFEN 10 MG TABLET (FP) PO SCH (06:06)
[2018-12-20] MEDS: hydrOXYzine PAMOATE 50 MG CAPSULE (FP) PO PRN (06:06)
[2018-12-20 08:06] VITALS: BP 112/72; PULSE 100; TEMP 98.6
[2018-12-20] MEDS ORDERED: BUPRENORPHINE/NALOXONE 4 MG/1 MG FILM PACKET SL ONE (08:35)
[2018-12-20] MEDS: amLODIPine BESYLATE 5 MG TABLET (FP) PO SCH (08:38)
[2018-12-20] MEDS: PRENATAL VITAMINS W/ FOLIC ACID TABLET (FP) PO SCH (08:38)
== END 2018-12-20 08:50 | disposition home or self-care (01) | DRG 772 ==
LOC: YASAS 13:10 → Y3W 13:12
PROVIDERS: ADMIT Neuromusculoskeletal Medicine & OMM; ATTEND Neuromusculoskeletal Medicine & OMM
PROC: HZ42ZZZ Group Counseling for Substance Abuse Treatment, Cognitive-Behavioral (ICD-10-PCS; principal; 2018-12-06)
DX: F11.20 Opioid dependence, uncomplicated (principal); F14.90 Cocaine use, unspecified, uncomplicated; F12.20 Cannabis dependence, uncomplicated; I10 Essential (primary) hypertension; M62.838 Other muscle spasm; M79.10 Myalgia, unspecified site; Z87.891 Personal history of nicotine dependence; Z59.0 Homelessness
CPT/HCPCS: 36415; 87389; J0475